=== PATIENT | male | born 1960 | race Caucasian/White ===

== ENCOUNTER 2017-11-23 15:11 | Outpatient (CLI) | END 2017-11-23 15:12 | disposition home or self-care (01) | LOC: LAB 15:11 | PROVIDERS: ATTEND Family Medicine | DX: I10 Essential (primary) hypertension (principal); Z13.220 Encounter for screening for lipoid disorders; R35.1 Nocturia; Z12.5 Encounter for screening for malignant neoplasm of prostate | CPT/HCPCS: 36415; 80053; 80061; 85025 ==

== ENCOUNTER 2018-10-19 17:42 | Outpatient (CLI) | END 2018-10-19 17:43 | disposition home or self-care (01) | LOC: LAB 17:42 | PROVIDERS: ATTEND Nurse Practitioner Family | DX: B37.0 Candidal stomatitis (principal) | CPT/HCPCS: 87101 ==